=== PATIENT | female | born 1955 | race Caucasian/White ===

== ENCOUNTER 2017-07-17 06:39 | Observation (INO) | payer OTHER ==
[2017-07-17] MEDS ORDERED: LIDOCAINE 1% PF 2 ML VIAL. ID (07:00)
[2017-07-17] MEDS ORDERED: ONDANSETRON PF 4 MG/2 ML VIAL. IV ×2 (07:00→10:30)
[2017-07-17] MEDS: IV RINGERS,LACTATED 1000ML 1,000 ML IV (07:04)
[2017-07-17 07:06] LABS: ADD MAN DIFF? NO
[2017-07-17 07:11] LABS: BASO % 0 % (0-3); EOS # 0.4 x10^3/uL (0.0-0.7); EOS % 5 % (0-3); HEMOGLOBIN 14.2 g/dL (12.0-15.5); LYMPH # 2.3 x10^3/uL (1.0-4.8); LYMPH % 26 % (24-48); MEAN CORPUSCULAR HEMOGLOBIN 30 pg (25-35); MEAN CORPUSCULAR HGB CONC 34 g/dL (31-37); MEAN CORPUSCULAR VOLUME 88 fL (79-100); MONO # 0.7 x10^3/uL (0.0-1.1); MONO % 8 % (0-9); NEUT # 5.2 x10^3uL (1.8-7.7); NEUT % 61 % (31-73); PLATELET COUNT 249 x10^3/uL (140-400); RED BLOOD COUNT 4.77 x10^6/uL (3.50-5.40); WHITE BLOOD COUNT 8.6 x10^3/uL (4.0-11.0)
[2017-07-17] MEDS ORDERED: ESTROGENS, CONJ VAGINAL CREAM 30GM TUBE. (07:23)
[2017-07-17] MEDS ORDERED: LIDOCAINE 1%/EPI 1:100,000 20 ML VIAL. (07:23)
[2017-07-17] MEDS ORDERED: DEXAMETHASONE SOD PHOS 20 MG/5 ML VIAL. (08:20)
[2017-07-17] MEDS ORDERED: PROPOFOL 20 ML IV (08:20)
[2017-07-17] MEDS ORDERED: MIDAZOLAM HCL/PF 2 MG/2 ML VIAL. (08:20)
[2017-07-17] MEDS ORDERED: ONDANSETRON PF 4 MG/2 ML VIAL. (08:20)
[2017-07-17] MEDS ORDERED: LIDOCAINE 1% PF 5 ML VIAL. (08:20)
[2017-07-17] MEDS ORDERED: fentaNYL PF VIAL 100 MCG/2 ML VIAL ×2 (08:21→09:23)
[2017-07-17] MEDS ORDERED: ROCURONIUM 50 MG/5 ML VIAL. (08:21)
[2017-07-17] MEDS: BUPIVACAINE-EPI 0.25%-1:200000 50 ML VIAL. (09:19)
[2017-07-17] MEDS: ESTROGENS, CONJ VAGINAL CREAM 30GM TUBE. (10:06)
[2017-07-17] MEDS ORDERED: NEOSTIGMINE 10 MG/10 ML VIAL. (10:09)
[2017-07-17] MEDS ORDERED: GLYCOPYRROLATE 1 MG/5 ML VIAL. (10:09)
[2017-07-17] MEDS ORDERED: PROCHLORPERAZINE 10 MG/2 ML VIAL. IV (10:30)
[2017-07-17] MEDS ORDERED: 0.9 % SODIUM CHLORIDE 10 ML DISP.SYRIN. IV (10:30)
[2017-07-17] MEDS ORDERED: ZOLPIDEM 5 MG TABLET. PO (10:30)
[2017-07-17] MEDS ORDERED: diphenhydrAMINE 50 MG/ML VIAL IV (10:30)
[2017-07-17] MEDS ORDERED: CALCIUM CARBONATE 500 MG TAB.CHEW PO (10:30)
[2017-07-17] MEDS ORDERED: SIMETHICONE 80 MG TAB.CHEW PO (10:30)
[2017-07-17] MEDS ORDERED: diphenhydrAMINE HCL 25 MG CAPSULE PO (10:30)
[2017-07-17] MEDS ORDERED: DEXTROSE 50% 25 GM / 50ML DISP.SYRIN. IV (10:30)
[2017-07-17] MEDS ORDERED: MORPHINE SULFATE 4 MG/ML DISP.SYRIN. ×2 (10:57→11:45)
[2017-07-17] MEDS: MORPHINE SULFATE 4 MG/ML DISP.SYRIN. IV ×5 (11:00→11:47)
[2017-07-17] MEDS ORDERED: PROCHLORPERAZINE 10 MG/2 ML VIAL. (11:48)
[2017-07-17] MEDS: PROCHLORPERAZINE 10 MG/2 ML VIAL. IV (11:51)
[2017-07-17] MEDS: KETOROLAC 30 MG/ML INJ. IV ×2 (12:10→22:15)
[2017-07-17] MEDS: GABAPENTIN 300 MG CAPSULE. PO ×2 (14:30→22:14)
[2017-07-17] MEDS: oxyCODONE/APAP 5/325 1 TAB TABLET PO ×2 (14:32→20:45)
[2017-07-18] MEDS: oxyCODONE/APAP 5/325 1 TAB TABLET PO ×2 (03:51→10:17)
[2017-07-18 05:33] LABS: BASO % 0 % (0-3); EOS % 0 % (0-3); HEMATOCRIT 38.3 % (36.0-47.0); HEMOGLOBIN 13.1 g/dL (12.0-15.5); LYMPH # 1.4 x10^3/uL (1.0-4.8); LYMPH % 9 % (24-48); MEAN CORPUSCULAR HEMOGLOBIN 30 pg (25-35); MEAN CORPUSCULAR HGB CONC 34 g/dL (31-37); MEAN CORPUSCULAR VOLUME 87 fL (79-100); MONO # 1.2 x10^3/uL (0.0-1.1); MONO % 8 % (0-9); NEUT # 12.6 x10^3uL (1.8-7.7); NEUT % 83 % (31-73); PLATELET COUNT 243 x10^3/uL (140-400); RED BLOOD COUNT 4.38 x10^6/uL (3.50-5.40); RED CELL DISTRIBUTION WIDTH 13.2 % (11.5-14.5); WHITE BLOOD COUNT 15.1 x10^3/uL (4.0-11.0)
[2017-07-18 05:38] LABS: ADD MAN DIFF? YES
[2017-07-18] MEDS: KETOROLAC 30 MG/ML INJ. IV (06:29)
[2017-07-18] MEDS: GABAPENTIN 300 MG CAPSULE. PO (06:29)
[2017-07-18 08:17] LABS: % LYMPHS 11 % (24-48); % MONOS 5 % (0-10); % SEGS 84 % (35-66); PLT ESTIMATE ADEQUATE (ADEQUATE)
== END 2017-07-18 12:20 | disposition home or self-care (01) ==
LOC: SURG 06:39 → 3 NORTH 10:25
DX: D25.1 Intramural leiomyoma of uterus (principal); N83.291 Other ovarian cyst, right side; N85.2 Hypertrophy of uterus; N72 Inflammatory disease of cervix uteri; N80.0 Endometriosis of uterus; N94.89 Other specified conditions associated with female genital organs and menstrual cycle
CPT/HCPCS: 36415; 85007; 85025; 86850; 86900; 86901; 88307; 96374; 96376; G0378; G0379; J0690; J0780; J1100; J1885; J2250; J2270; J2405; J2704; J2710; J3010; J3490